=== PATIENT | male | born 1965 | race African-American/Black ===

== ENCOUNTER 2017-11-10 21:39 | Emergency (ER) | payer MEDICARE, MEDICAID ==
[~2017-11-10] VITALS: Ht 167.6 cm; Wt 61.0 kg
[2017-11-10] MEDS ORDERED: KETOROLAC 60MG/2ML VIAL IM ONE (23:00)
[2017-11-10] MEDS ORDERED: METHOCARBAMOL 500MG TABLET PO ONE (23:00)
[2017-11-11] MEDS ORDERED: PREDNISONE 20MG TABLET PO ONE
[2017-11-11] MEDS ORDERED: ACETAMINOPHEN WITH CODEINE 300/30MG TABLET PO ONE
[2017-11-11 00:15] VITALS: BP 125/86
== END 2017-11-11 00:26 | disposition home or self-care (01) ==
LOC: ER 22:10
DX: G89.29 Other chronic pain (principal); M54.5 Low back pain; F12.10 Cannabis abuse, uncomplicated
CPT/HCPCS: 96372; 99284; J1885; J7512

== ENCOUNTER 2021-02-21 01:20 | Emergency (ER) | payer MEDICARE, MEDICAID ==
[~2021-02-21] VITALS: Ht 170.2 cm; Wt 75.0 kg
[2021-02-21] MEDS ORDERED: KETOROLAC 30MG/ML VIAL IV STA (02:14)
[2021-02-21] MEDS ORDERED: ONDANSETRON HCL 4MG/2ML INJ IV STA ×2 (02:14→04:10)
[2021-02-21] MEDS ORDERED: SODIUM CHLORIDE 0.9% 1,000 ML IV ONE (02:15)
[2021-02-21 03:08] LABS: BASOPHILS % 0.6 % (0.0-2.0); EOSINOPHILS % 0.4 % (0.0-5.0); HEMATOCRIT. 43.7 % (42.0-52.0); HEMOGLOBIN. 14.2 g/dL (14.0-18.0); LYMPHOCYTES % 8.6 % (20.0-50.0); MEAN CORPUSCULAR HEMOGLOBIN 27.6 pg (28.0-32.0); MEAN CORPUSCULAR VOLUME 84.7 fL (80.0-94.0); MEAN PLATELET VOLUME 8.8 fl (7.4-10.4); MONOCYTES % 2.9 % (2.0-8.0); NEUTROPHILS % 87.5 % (40.0-76.0); PLATELET 163 x1000/uL (130-400); RED BLOOD CELL COUNT 5.16 mill/uL (4.7-6.1); RED CELL DISTRIBUTION WIDTH 14.4 % (11.6-14.6)
[2021-02-21 03:11] LABS: CHLORIDE 105 mEq/L (98-107)
[2021-02-21 03:15] LABS: ETHANOL BLOOD < 10 mg/dL
[2021-02-21 03:42] LABS: CLARITY URINE CLEAR (CLEAR); COLOR URINE YELLOW (YELLOW); KETONES URINE 1+ (NEGATIVE); LEUKOCYTE ESTERASE URINE NEGATIVE (NEGATIVE); NITRITE URINE NEGATIVE (NEGATIVE); OCCULT BLOOD URINE TRACE (NEGATIVE); PH URINE 8.5 (4.5-8.0); PROTEIN URINE 1+ (NEGATIVE); SPECIFIC GRAVITY URINE 1.017 (1.005-1.030); UROBILINOGEN URINE 0.2 E.U./dL (0.2-1.0)
[2021-02-21 03:59] LABS: *AMPHETAMINES SCREEN URINE NEGATIVE (NEGATIVE); *BARBITURATES SCREEN URINE NEGATIVE (NEGATIVE); *BENZODIAZEPINES SCREEN URINE NEGATIVE (NEGATIVE); *COCAINE SCREEN URINE NEGATIVE (NEGATIVE)
[2021-02-21 04:00] LABS: CANNABINOID URINE SCREEN PRESUMTIVE POSITIVE (NEGATIVE); METHADONE URINE SCREEN NEGATIVE (NEGATIVE); OPIATES URINE SCREEN NEGATIVE (NEGATIVE); PHENCYCLIDINE URINE SCREEN NEGATIVE (NEGATIVE)
[2021-02-21] MEDS ORDERED: MORPHINE SULFATE 4 MG/ML CPJ (NOT FOR IM USE) IV STA (04:10)
[2021-02-21] MEDS ORDERED: OMEP40CA12 MT (04:12)
[2021-02-21 05:16] VITALS: BP 135/75
== END 2021-02-21 05:27 | disposition home or self-care (01) ==
LOC: ER 01:20
DX: R10.9 Unspecified abdominal pain (principal); F12.10 Cannabis abuse, uncomplicated; Z98.890 Other specified postprocedural states
CPT/HCPCS: 36415; 74176; 80053; 80305; 80320; 81003; 83690; 85025; 96361; 96374; 96375; 96376; 99284; J1885; J2270; J2405; J7030; G0480